=== PATIENT | male | born 1985 | race Caucasian/White ===

== ENCOUNTER 2021-02-26 02:55 | Emergency (ER) | payer OTHER ==
[~2021-02-26] VITALS: Ht 172.7 cm; Wt 97.5 kg
[2021-02-26 04:32] VITALS: BP 157/102
== END 2021-02-26 05:56 | disposition home or self-care (01) ==
LOC: M.ERS 02:55
DX: S01.81XA Laceration without foreign body of other part of head, initial encounter (principal); V87.8XXA Person injured in other specified noncollision transport accidents involving motor vehicle (traffic), initial encounter; Y93.55 Activity, bike riding; Y92.413 State road as the place of occurrence of the external cause; Y99.8 Other external cause status